=== PATIENT | male | born 1955 | race African-American/Black ===

== ENCOUNTER 2016-05-14 09:09 | Inpatient (IN) | payer OTHER ==
[~2016-05-14] VITALS: Ht 147.3 cm; Wt 58.5 kg
[~2016-05-14 09:09] MED LIST: MIRALAX17 GM PO
[2016-05-14] MEDS ORDERED: ELAVIL50 MG PO (09:24)
[2016-05-14] MEDS ORDERED: METFORMIN HCL500 MG PO (09:24)
[2016-05-14 10:21] LABS: HEMATOCRIT 39.6 % (38.0-50.0); MCH 33.9 PG (29.0-34.0); MCHC 34.1 G/DL (30.0-36.0); MCV 99.5 FL (86-99); MEAN PLAT.VOLUME 9.2 uM^3 (9.0-12.4); PLATELET COUNT 200 K/uL (156-360); RBC DIS.WIDTH-SD 49.6 % (39-53); RED BLOOD COUNT 3.98 M/uL (4.00-5.50); WHITE BLOOD COUNT 6.5 K/uL (4.1-10.2)
[2016-05-14 10:33] LABS: CHLORIDE 109 mEq/L (99-109); SODIUM 141 mEq/L (136-147)
[2016-05-14 10:35] LABS: GLUCOSE 159 mg/dL (70-99)
[2016-05-14 10:36] LABS: ANION GAP 11 MEQ/L (2-14)
[2016-05-14 10:39] LABS: GFR ESTIMATE (CALCULATED) > 59 mL/min/
[2016-05-14 10:40] LABS: UREA NITROGEN (BUN) 13 mg/dL (9-23)
[2016-05-14 12:09] LABS: ADD MIUA? NO; BILIRUBIN NEGATIVE; BLOOD NEGATIVE; COLOR YELLOW ((YELLOW)); GLUCOSE (STRIP) NEGATIVE; KETONES NEGATIVE; LEUKOCYTES NEGATIVE; NITRITE NEGATIVE; PROTEIN (STRIP) TRACE; SPECIFIC GRAVITY 1.019 (1.000-1.030); UCUL ADDED? NO; UROBILINOGEN 0.2 MG/DL (0.2-1.0)
[2016-05-14] MEDS ORDERED: AZITHROMYCIN250 MG PO (14:33)
[2016-05-14] MEDS ORDERED: ONE DAILY TABL1 EAC1 PO (14:33)
[2016-05-14 18:05] VITALS: BP 120/74
[2016-05-14 19:25] VITALS: BP 109/67
[2016-05-15 00:23] VITALS: BP 98/85
[2016-05-15 04:38] VITALS: BP 99/61
[2016-05-15 08:00] VITALS: BP 98/63
[2016-05-15 12:00] VITALS: BP 101/59
[2016-05-15 12:08] LABS: ANION GAP 6 MEQ/L (2-14); CHLORIDE 110 MEQ/L (99-109); GFR ESTIMATE (CALCULATED) > 59 mL/min/; POTASSIUM 4.1 MEQ/L (3.7-5.4); SAMPLE HEMOLYSIS CHECK 0; SAMPLE ICTERIC CHECK 0; SAMPLE LIPEMIA CHECK 0; SODIUM 142 MEQ/L (136-147); UREA NITROGEN (BUN) 13 mg/dL (9-23)
[2016-05-15 12:17] LABS: Estimated Average Glucose 105 mg/dL (70-123); HEMOGLOBIN A1c (GLYCOHEMOGLOB) 5.3 % HGB (Below 5.7)
[2016-05-15 12:21] LABS: GLUCOSE 80 mg/dL (70-99)
[2016-05-15 16:00] VITALS: BP 112/60
[2016-05-15 19:40] VITALS: BP 112/76
[2016-05-16 00:10] VITALS: BP 107/72
[2016-05-16 03:45] VITALS: BP 113/70
[2016-05-16 07:25] LABS: EOSINOPHIL (%) 0.8 % (0-5); IMMATURE GRANULOCYTE (%) 0.3 % (0.0-0.7); LYMPHOCYTE COUNT 2.2 K/uL (1.0-2.8); MCH 33.4 PG (29.0-34.0); MCHC 33.7 G/DL (30.0-36.0); MCV 99.2 FL (86-99); MEAN PLAT.VOLUME 9.3 uM^3 (9.0-12.4); MONOCYTE COUNT 0.4 K/uL (0-0.8); NEUTROPHIL (%) 32.6 % (45-76); NEUTROPHIL COUNT 1.3 K/uL (1.8-6.4); PLATELET COUNT 180 K/uL (156-360); RBC DIS.WIDTH-CV 14.3 % (11.8-14.6); RBC DIS.WIDTH-SD 50.9 % (39-53); RED BLOOD COUNT 3.53 M/uL (4.00-5.50)
[2016-05-16 07:28] LABS: WHITE BLOOD COUNT 3.9 K/uL (4.1-10.2)
[2016-05-16 07:34] LABS: ALKALINE PHOSPHATASE 64 IU/L (3-129); ANION GAP 5 MEQ/L (2-14); CHLORIDE 110 MEQ/L (99-109); GFR ESTIMATE (CALCULATED) > 59 mL/min/; GLUCOSE 71 mg/dL (70-99); POTASSIUM 4.2 MEQ/L (3.7-5.4); SAMPLE HEMOLYSIS CHECK 1; SAMPLE ICTERIC CHECK 0; SAMPLE LIPEMIA CHECK 0; SODIUM 142 MEQ/L (136-147); TOTAL BILIRUBIN 0.3 MG/DL (0.0-1.0); UREA NITROGEN (BUN) 13 mg/dL (9-23)
[2016-05-16 08:00] VITALS: BP 109/69
[2016-05-16] MEDS ORDERED: LEVETIRACETAM250 MG PO (12:27)
== END 2016-05-16 14:30 | disposition home health service (06) | DRG 101 ==
LOC: EME → EDBD 09:09 → EDOF 13:26 → 2EAST 13:26 → EDOF 14:29 → 2EAST 17:11
PROVIDERS: Emergency Medicine; Hospitalist
DX: R56.9 Unspecified convulsions (principal); N17.9 Acute kidney failure, unspecified; E86.0 Dehydration; Q90.9 Down syndrome, unspecified; E11.9 Type 2 diabetes mellitus without complications; F79 Unspecified intellectual disabilities
CPT/HCPCS: 70450; 71010; 72125; 80048; 80053; 80069; 81003; 82948; 83036; 85025; 85027; 93005; 95819; 99281; 99285; G0378; J1650; J1815; J2060; J7030

== ENCOUNTER 2017-03-28 11:25 | Emergency (ER) | payer OTHER ==
[~2017-03-28] VITALS: Ht 149.9 cm; Wt 58.1 kg
[~2017-03-28 11:25] MED LIST changes: +AZITHROMYCIN250 MG PO; +ELAVIL50 MG PO; +LEVETIRACETAM250 MG PO; +METFORMIN HCL500 MG PO; +ONE DAILY TABL1 EAC1 PO
[2017-03-28 12:10] LABS: POINT-OF-CARE METER ID UU13113778
[2017-03-28 15:10] LABS: HEMATOCRIT 38.1 % (38.0-50.0); MCH 34.4 PG (29.0-34.0); MCHC 34.1 G/DL (30.0-36.0); MCV 100.8 FL (86-99); MEAN PLAT.VOLUME 9.2 uM^3 (9.0-12.4); PLATELET COUNT 230 K/uL (156-360); RBC DIS.WIDTH-CV 15.3 % (11.8-14.6); RBC DIS.WIDTH-SD 57.1 % (39-53); RED BLOOD COUNT 3.78 M/uL (4.00-5.50); WHITE BLOOD COUNT 7.7 K/uL (4.1-10.2)
[2017-03-28 15:18] LABS: CHLORIDE 102 mEq/L (99-109); POTASSIUM 4.1 mEq/L (3.7-5.4); SODIUM 138 mEq/L (136-147)
[2017-03-28 15:20] LABS: GLUCOSE 152 mg/dL (70-99)
[2017-03-28 15:21] LABS: ANION GAP 10 MEQ/L (2-14)
[2017-03-28 15:22] LABS: TOTAL BILIRUBIN 0.5 mg/dL (0.0-1.0)
[2017-03-28 15:23] LABS: ALKALINE PHOSPHATASE 84 IU/L (3-129)
[2017-03-28 15:24] LABS: GFR ESTIMATE (CALCULATED) > 59 mL/min/ (58.99-99999)
[2017-03-28 15:25] LABS: UREA NITROGEN (BUN) 16 mg/dL (9-23)
[2017-03-28 15:27] LABS: URIC ACID 4.9 mg/dL (3.1-9.2)
[2017-03-28 15:37] LABS: ADD MIUA? NO; BILIRUBIN NEGATIVE; BLOOD NEGATIVE; COLOR YELLOW ((YELLOW)); GLUCOSE (STRIP) NEGATIVE; KETONES NEGATIVE; LEUKOCYTES NEGATIVE; NITRITE NEGATIVE; PROTEIN (STRIP) NEGATIVE; SPECIFIC GRAVITY 1.015 (1.000-1.030); UROBILINOGEN 0.2 MG/DL (0.2-1.0)
[2017-03-28] MEDS ORDERED: DELSYM30 MG/5 M1 PO (17:18)
[2017-03-28 17:40] VITALS: BP 118/59
== END 2017-03-28 17:42 | disposition home or self-care (01) ==
LOC: EME 11:25
PROVIDERS: Emergency Medicine
DX: S92.412A Displaced fracture of proximal phalanx of left great toe, initial encounter for closed fracture (principal); E11.649 Type 2 diabetes mellitus with hypoglycemia without coma; Q90.9 Down syndrome, unspecified; Z91.81 History of falling; R56.9 Unspecified convulsions; F79 Unspecified intellectual disabilities
CPT/HCPCS: 71010; 73660; 80053; 81003; 82948; 83605; 84550; 85027; 87040; 99281; 99285; J7030